=== PATIENT | female | born 1945 ===

== ENCOUNTER 2021-07-02 11:39 | Inpatient (IN) | payer MEDICARE, BC ==
[~2021-07-02] VITALS: Ht 162.6 cm; Wt 68.0 kg
[~2021-07-02 11:39] MED LIST: INSLANTI SUBCUT; INSUINJ4 SUBCUT; LEVO100T3 PO; LOSA25TA2 PO; METO-6 PO; NOVOLOG; TRIA25CA PO
[2021-07-02] MEDS ORDERED: ONDANSETRON HCL 4 MG/2 ML VIAL IV ONE (13:15)
[2021-07-02 13:21] LABS: Hematocrit 38.4 % (36.0-46.0); Mean Corpuscular Hemoglobin 28.3 pg (28.0-32.0); Mean Corpuscular Hgb Conc. 33.8 g/dL (32.0-36.0); Mean Corpuscular Volume 83.7 fL (80.0-100.0); Red Blood Cells 4.59 10^6/uL (4.0-5.20); Red Cell Distribution Width 14.6 % (11.8-14.3); White Blood Cell 3.3 10^3/uL (4.4-10.8)
[2021-07-02 13:34] LABS: Basophils % (manual) 0 (0.0-2.0); Blast Cells 0; Eosinophils % (manual) 0 (0-7); Metamyelocytes % 0; Promyelocytes % 0; Reactive Lymphocytes 0
[2021-07-02 13:40] LABS: INR 1.05 (0.9-1.15); Partial Thromboplastin Time 31.6 sec (23.6-33.0)
[2021-07-02 13:49] LABS: Band Neutrophils % (manual) 5; Lymphocytes % (manual) 29 (10.0-50.0); Monocytes % (manual) 10 (0-12); Myelocytes % 1
[2021-07-02 14:07] LABS: Albumin 3.4 g/dL (3.4-5.0); Potassium 3.3 mmol/L (3.5-5.1)
[2021-07-02 14:09] LABS: BUN/Creatinine Ratio 12.2
[2021-07-02 14:14] LABS: Bilirubin, Total 0.3 mg/dL (0.2-1.0); Total Protein 6.8 g/dL (6.4-8.2)
[2021-07-02 16:01] VITALS: BP 112/49
[2021-07-02] MEDS ORDERED: FUROSEMIDE 40 MG/4 ML VIAL IV ONE (16:30)
[2021-07-02] MEDS ORDERED: MORPHINE SULFATE 4 MG/ML SYR/VIAL IV PRN (16:30)
[2021-07-02] MEDS ORDERED: ONDANSETRON HCL 4 MG/2 ML VIAL IV PRN (16:30)
[2021-07-02] MEDS ORDERED: SODIUM CHLORIDE 0.9% 1,000 ML IV ONE (16:30)
[2021-07-02] MEDS ORDERED: REMDESIVIR PER PHARMACY 0 ML IV SCH (17:00)
[2021-07-02] MEDS ORDERED: ALBUTEROL SULF HFA 90MCG INH 200DOSE IN PRN (17:15)
[2021-07-02] MEDS ORDERED: ACETAMINOPHEN 500 MG TAB PO PRN (17:15)
[2021-07-02] MEDS ORDERED: REMDESIVIR 200 MG in NS 210ml LOADING DOSE ADULT IV ONE (20:00)
[2021-07-02] MEDS ORDERED: BUDESONIDE (INHALATION) 180 MCG IH IN SCH (22:00)
[2021-07-02] MEDS ORDERED: ENOXAPARIN SOD 40 MG/0.4 ML SYRINGE SC SCH (22:00)
[2021-07-03] MEDS ORDERED: LEVOTHYROXINE SODIUM 100 MCG TAB PO SCH (07:00)
[2021-07-03] MEDS ORDERED: ZINC SULFATE 220mg CAP or TAB PO SCH (10:00)
[2021-07-03] MEDS ORDERED: CHOLECALCIFEROL (VITD3) 2,000 UNIT CAP/TAB PO SCH (10:00)
[2021-07-03] MEDS ORDERED: DexAMETHasone SOD PHOS 10MG/1ML VIAL INJ IV SCH (10:00)
[2021-07-03] MEDS ORDERED: ASCORBIC ACID 1,000 MG TAB PO SCH (10:00)
[2021-07-03] MEDS ORDERED: FUROSEMIDE 40 MG/4 ML VIAL IV SCH (10:00)
[2021-07-03] MEDS ORDERED: REMDESIVIR 100mg 100 MG in SODIUM CHL 0.9% 230 ML IV SCH (15:00)
== END 2021-07-02 18:32 | disposition left against medical advice (07) | DRG 178 ==
LOC: EDBD 11:39 → ER 11:39 → TELE 16:35
PROVIDERS: ADMIT Registered Nurse; ATTEND Registered Nurse
PROC: XW033E5 Introduction of Remdesivir Anti-infective into Peripheral Vein, Percutaneous Approach, New Technology Group 5 (ICD-10-PCS; principal; 2021-07-02)
DX: U07.1 COVID-19 (principal); N17.9 Acute kidney failure, unspecified; E03.9 Hypothyroidism, unspecified; E16.2 Hypoglycemia, unspecified; I10 Essential (primary) hypertension; S09.90XA Unspecified injury of head, initial encounter; M47.812 Spondylosis without myelopathy or radiculopathy, cervical region; R55 Syncope and collapse; X58.XXXA Exposure to other specified factors, initial encounter; Y93.89 Activity, other specified; Y92.89 Other specified places as the place of occurrence of the external cause; Y99.8 Other external cause status; Z53.29 Procedure and treatment not carried out because of patient's decision for other reasons
CPT/HCPCS: 36415; 70450; 71045; 72125; 80053; 82962; 83605; 83735; 83880; 84484; 85007; 85027; 85610; 85730; 93005; 93886; 96361; 96374; G0378; J2405